=== PATIENT | female | born 1970 | race African-American/Black ===

== ENCOUNTER 2025-06-07 07:21 | Emergency (ER) | payer MEDICAID, OTHER ==
[~2025-06-07] VITALS: Ht 172.7 cm; Wt 66.0 kg
[2025-06-07 07:38] VITALS: O2SAT 100
[2025-06-07] MEDS ORDERED: METH-653 MT (08:59)
[2025-06-07] MEDS: IBUPROFEN 600MG TABLET PO ONE (08:59)
[2025-06-07] MEDS ORDERED: IBUP-1455 MT (08:59)
[2025-06-07] MEDS ORDERED: LIDO-53 TP (08:59)
[2025-06-07 09:13] VITALS: BP 145/90; PULSE 65; RESP 17; TEMP 37.1; O2SAT 99
== END 2025-06-07 09:14 | disposition home or self-care (01) ==
LOC: ER 07:21
DX: M54.50 Low back pain, unspecified (principal); J45.909 Unspecified asthma, uncomplicated; Z79.899 Other long term (current) drug therapy; W19.XXXA Unspecified fall, initial encounter; Y93.89 Activity, other specified; Y92.89 Other specified places as the place of occurrence of the external cause; Y99.8 Other external cause status
CPT/HCPCS: 99283